=== PATIENT | female | born 1975 | race Caucasian/White ===

== ENCOUNTER 2019-01-20 16:53 | Emergency (ER) | payer OTHER ==
[~2019-01-20] VITALS: Ht 157.5 cm; Wt 111.8 kg
[2019-01-20 17:00] VITALS: BP 149/94
--- NOTE | 2019-01-20 17:12 | NUR ---
AFTER PROVIDING URINE SAMPLE PT AMBULATES BACK TO THE LOBBY
--- NOTE | 2019-01-20 20:07 | NUR ---
Patient ambulated to bed 7. RN evaluating patient at bedside.
--- NOTE | 2019-01-20 20:14 | NUR ---
Dr. Farrar evaluating patient at bedside.
[2019-01-20 20:34] LABS: APPEARANCE,URINE CLEAR (CLEAR); BILIRUBIN,URINE NEGATIVE (NEGATIVE); BLOOD, URINE TRACE-L (NEGATIVE); COLOR,URINE DARK YELLOW (YELLOW); LEUKOCYTE ESTERASE ,URINE NEGATIVE (NEGATIVE); NITRITE, URINE POSITIVE (NEGATIVE); UGLUCOSE NEGATIVE (NEGATIVE)
[2019-01-20 20:45] LABS: WBC,URINE 0-5 /HPF (0-5)
[2019-01-20] MEDS ORDERED: ACETAMINOPHEN EXTRA STRENGTH 500 MG TAB PO ONE (20:55)
[2019-01-20] MEDS ORDERED: cefTRIAXone 1,000 MG in LIDOCAINE MPF 1% - 5 mL VIAL 2.1 ML IM ONE (21:15)
--- NOTE | 2019-01-20 22:53 | NUR ---
Dr. Farrar evaluating patient at bedside.
[2019-01-20 23:05] VITALS: BP 123/62
== END 2019-01-20 23:05 | disposition home or self-care (01) ==
LOC: MED 16:53
DX: N39.0 Urinary tract infection, site not specified (principal); N83.201 Unspecified ovarian cyst, right side; I10 Essential (primary) hypertension; Z88.5 Allergy status to narcotic agent; Z88.6 Allergy status to analgesic agent
CPT/HCPCS: 74176; 81001; 81025; 96372; 99284; J0696; J2001